=== PATIENT | female | born 1960 | race Caucasian/White ===

== ENCOUNTER 2017-10-21 10:11 | Inpatient (IN) | payer MEDICAID, SELFPAY ==
[2017-10-21] VITALS (8 sets, daily range): BP systolic 112–125; BP diastolic 44–85; PULSE 76–108; RESP 20–24; TEMP 36.9–38.8; O2SAT 91–97; BMI 36.2; BMI 33.7
--- NOTE | 2017-10-21 10:25 | XR_ITS ---
XR chest 2V HISTORY: ITS.REASON: dyspnea ORDERING PHYSICIAN: Gino Oates MD PATIENT AGE: 56 years COMPARISON: 09/03/2009 FINDINGS: The cardiomediastinal silhouette and pulmonary vascularity are within normal limits. There is coarsening of bronchovascular markings in the lower lobes which has developed since previous exam with increased density in the lower lobes and right middle lobe consistent with bronchopneumonia. Suggest follow until clear as pulmonary nodule could be obscured. IMPRESSION: Bronchopneumonia. Recommend follow until clear
[2017-10-21 11:39] LABS: Basophils % 0.3 % (0.1-2.0); Eosinophils % 0.1 % (0.1-12.0); Lymphocytes # 0.8 K/mm3 (0.7-4.5); Lymphocytes % 19.8 K/mm3 (10-50); Mean Corpuscular HGB Conc 33.4 g/dL (31.8-35.4); Mean Corpuscular Hemoglobin 29.1 pg (27.0-31.2); Mean Corpuscular Volume 87.4 fl (81-99); Mean Platelet Volume 7.9 fl (7.4-10.4); Monocytes # 0.3 K/mm3 (0.1-1.0); Monocytes % 5.8 % (1.7-9.3); Neutrophils # 3.1 K/mm3 (1.8-7.8); Neutrophils % 73.9 % (37.0-80.0); Platelet Count 203 K/mm3 (142-424); Red Cell Distribution Width 12.9 % (11.5-17.5); White Blood Count 4.2 K/mm3 (4.8-10.8)
[2017-10-21 11:43] LABS: Lipase 175 u/L (73-393)
[2017-10-21 11:48] LABS: Alanine Aminotransferase 69 U/L (12-78); Albumin Level 2.9 gm/dL (3.4-5.0); Albumin/Globulin Ratio 0.7 (1.1-1.8); Alkaline Phosphatase 112 U/L (46-116); Anion Gap 13.2 mEq/L (5-15); Aspartate Amino Transferase 117 U/L (15-37); Bilirubin,Total 0.4 mg/dL (0.2-1.0); Blood Urea Nitrogen 12 mg/dL (7-18); Calcium 8.1 mg/dL (8.5-10.1); Carbon Dioxide 27 mmol/L (21.0-32.0); Chloride 104 mmol/L (98-107); Creatinine Clearance Estimated 100 mL/min (0-300); Creatinine,Serum 0.89 mg/dL (0.55-1.02); Estimated Glomerular Filt Rate 66 ml/min (>60); GFR (African American) 79 ML/MIN (>60); Globulin 4.3 gm/dl (1.3-3.2); Glucose 128 mg/dL (74-106); Potassium 3.2 mmoL/L (3.5-5.1); Sodium 141 mmol/L (136-145); Total Protein,Serum 7.2 gm/dL (6.4-8.2)
[2017-10-21 11:50] LABS: Lactic Acid 0.9 mmol/L (0.4-2.0)
--- NOTE | 2017-10-21 12:44 | HMH.EDSOB ---
ED Disposition Clinical Impression: Hypoxia, Hypokalemia RLL pneumonia Qualifiers: Pneumonia type: due to unspecified organism Qualified Code(s): J18.1 - Lobar pneumonia, unspecified organism Disposition: Admitted As Inpatient Condition on Discharge: Fair Time of Disposition: 12:45 - Critical Care Critical Care Time: No Attestation: On 10/21/17, the high probability of a clinically significant, sudden or life threatening deterioration of the following system(s) required my full and direct attention, intervention and personal management. The time I documented below is in addition to time spent performing reported procedures but includes the following listed in this critical care notation. Medical Decision Making - Medical Records Medical records reviewed: Yes: I reviewed the patient's medical records. Vital Signs: 10/21/17 10:34 10/21/17 14:00 10/21/17 14:01 Temperature 99.3 F 99.1 F Temperature Source Oral Oral Pulse Rate 88 Pulse Rate [Right Radial] 108 H Respiratory Rate 22 20 Blood Pressure 125/85 Blood Pressure [Right Arm] 116/44 Blood Pressure Mean [Right Arm] 68 Blood Pressure Source Automatic Cuff Blood Pressure Source [Right Arm] Automatic Cuff Blood Pressure Position Supine Blood Pressure Position [Right Arm] Sitting 02 Sat by Pulse Oximetry 91 L Oxygen Delivery Method Room Air Nasal Cannula Room Air Oxygen Flow Rate (LPM) 2 - Lab Data Lab results reviewed: Yes: I reviewed the patient's lab results. Lab Results 10/21/17 11:25: WBC 4.2 L, RBC 4.80, Hgb 14.0, Hct 42.0, MCV 87.4, MCH 29.1, MCHC 33.4, RDW 12.9, Plt Count 203, MPV 7.9, Neut % (Auto) 73.9, Lymph % (Auto) 19.8, [place] % (Auto) 5.8, Eos % (Auto) 0.1, Baso % (Auto) 0.3, Neut # (Auto) 3.1, Lymph # (Auto) 0.8, [place] # (Auto) 0.3, Eos # (Auto) 0.0, Baso # (Auto) 0.0 10/21/17 11:25: Sodium 141, Potassium 3.2 L, Chloride 104, Carbon Dioxide 27, Anion Gap 13.2, BUN 12, Creatinine 0.89, Estimated Creat Clear 100, Estimated GFR 66, Est GFR ( Amer) 79, Glucose 128 H, Calcium 8.1 L, Total Bilirubin 0.4, AST 117 H, ALT 69, Alkaline Phosphatase 112, Total Protein 7.2, Albumin 2.9 L, Globulin 4.3 H, Albumin/Globulin Ratio 0.7 L 10/21/17 11:25: Lactic Acid 0.9 10/21/17 11:25: Total Creatine Kinase 576 H*, CK-MB (CK-2) 0.9, CK-MB (CK-2) Rel Index 0.2, Troponin I < 0.02, Amylase 33 10/21/17 11:25: Lipase 175 10/21/17 11:25: Influenza Type A Ag Negative, Influenza Type B Ag Negative Result diagrams: 10/21/17 11:25 10/21/17 11:25 Orders (Tests/Meds): ED MEDICATIONS Generic Name Dose Route Start Last Admin Trade Name Freq PRN Reason Stop Dose Admin Acetaminophen 650 mg 10/21/17 23:48 10/21/17 23:45 Acetaminophen 325mg Tab PO 11/20/17 23:47 650 mg Q6HP PRN Administration MILD PAIN OR FEVER Albuterol/Ipratropium 3 ml 10/21/17 18:00 10/22/17 11:10 Duoneb 3ml Neb IH 11/20/17 17:59 3 ml Q6RT DAVID Administration Sodium Chloride 1,000 mls @ 75 mls/hr 10/21/17 14:15 10/22/17 03:15 Sod Chloride 0.9% 1000ml Bag IV 11/20/17 12:59 75 mls/hr .[id number] DAVID Administration Levofloxacin/Dextrose 750 mg in 150 mls @ 100 mls/hr 10/22/17 13:00 Levofloxacin 750mg/150ml Premix IV 11/04/17 12:59 Q24H DAVID Protocol Sodium Chloride 10 ml 10/21/17 14:15 Saline Flush 10ml Syringe IV 11/20/17 12:45 NEEDED PRN Maintain IV Site Discontinued Medications Generic Name Dose Route Start Last Admin Trade Name Freq PRN Reason Stop Dose Admin Levofloxacin/Dextrose 750 mg in 150 mls @ 100 mls/hr 10/21/17 10:45 10/21/17 11:40 Levofloxacin 750mg/150ml Premix IV 11/04/17 10:44 100 mls/hr Q24H DAVID Administration Protocol Sodium Chloride 1,000 mls @ 75 mls/hr 10/21/17 13:00 10/21/17 14:28 Sod Chloride 0.9% 1000ml Bag IV 11/20/17 12:59 75 mls/hr .[id number] DAVID Administration Levofloxacin/Dextrose 750 mg in 150 mls @ 100 mls/hr 10/21/17 13:
[2017-10-21 13:20] LABS: Amylase 33 U/L (25-125); CKMB Relative Index 0.2 U/L (0-4.0); Creatine Kinase 576 U/L (26-192); Creatine Kinase MB 0.9 mg/ml (0.0-3.6); Troponin I < 0.02 ng/ml (0.00-0.06)
--- NOTE | 2017-10-21 14:10 | HMH.HP ---
*Admission Date: 10/21/17 *Chief complaint: shortness of breath, cough, weakness *History of present illness: 56 year old female presented to the ED with shortness of breath, cough and weakness that has worsened over the last few days. She was seen in PCP office on 10/17 and diagnosed with URI. Since then, she has developed shortness of breath and fever. In the ED, she was found to be mildly hypoxic at 90% on RA. CXR was + for RLL pneumonia. Patient admitted for IV antibiotics. [facility] History I have reviewed the patient's past medical history: Yes Medical History: Reports:: Depression, Hypertension - *Social History Alcohol Intake: never - Psychiatric History Expresses thoughts of harming self/others: None Suicide Plan Description: No Plan Review of Systems - Review of Systems Review of systems:: pertinent systems reviewed and negative unless documented below - Constitutional Reports fatigue, Reports fever(s), Reports weakness - *Respiratory Reports cough, Reports shortness of breath Meds Allergies Allergy/AdvReac Type Severity Reaction Status Date / Time Penicillins [PENICILLINS] Allergy Unknown I-HIVES Verified 10/21/17 11:37 Exam Vital signs and Labs for Last 24 Hours: Temp Pulse Resp BP Pulse Ox 99.1 F 88 20 125/85 91 L 10/21/17 14:01 10/21/17 14:01 10/21/17 14:01 10/21/17 14:01 10/21/17 10:34 Narrative: Alert and oriented x3. Rate and rhythm regular. Pulses 2+ bilaterally. No LE edema. Abdomen soft and nontender. Normactive Bowel sounds. No LAD. No JVD. Moist membranes, nose clear Assessment and Plan (1) Hypokalemia Current visit: Yes Status: Acute Category: Medical Code(s): E87.6 - Hypokalemia (2) RLL pneumonia Current visit: Yes Status: Acute Qualifiers: Pneumonia type: due to unspecified organism Qualified Code(s): J18.1 - Lobar pneumonia, unspecified organism Category: Medical Code(s): J18.1 - Lobar pneumonia, unspecified organism - Assessment and plan all Dx Assessment and Plan for all problems:: Continue IV antibiotics and duonebs. Obtain Resp PCR. Obtain sputum culture if able to produce.
[2017-10-21 14:37] LABS: Adenovirus,PCR Not Detected (NotDetected); Bordetella Pertussis Not Detected (NotDetected); Chlamydophila Pneumoniae, PCR Not Detected (NotDetected); Coronavirus 229E Not Detected (NotDetected); Coronavirus NL63 Not Detected (NotDetected); Coronavirus OC43 Not Detected (NotDetected); Coronovirus HKU1,PCR Not Detected (NotDetected); Human Metapneumovirus Not Detected (NotDetected); Influenza A, PCR Not Detected (NotDetected); Influenza AH1, 2009 Not Detected (NotDetected); Influenza AH1, PCR Not Detected (NotDetected); Influenza AH3,PCR Not Detected (NotDetected); Influenza B, PCR Not Detected (NotDetected); Mycoplasma Pneumoniae, PCR Not Detected (NotDected); Parainfluenza 1, PCR Not Detected (NotDetected); Parainfluenza 2, PCR Not Detected (NotDetected); Parainfluenza 3, PCR Not Detected (NotDetected); Parainfluenza 4, PCR Not Detected (NotDetected); Respiratory Syncytial Virus Not Detected (NotDetected); Rhinovirus/Enterovirus Not Detected (NotDetected)
[2017-10-22] VITALS (11 sets, daily range): BP systolic 115–139; BP diastolic 67–85; PULSE 68–113; RESP 20–24; TEMP 36.4–37.1; O2SAT 89–97
--- NOTE | 2017-10-22 05:24 | PC.NURSE ---
PT HAS C/O SOA AT TIMES THIS SHIFT. SHE REMAINS ON 2.5 L O2 NC. SHE WAS NOTED TO HAVE SCATTERED WHEEZING T/O LUNG GRUBER. PT C/O BEING COLD AND WAS SHIVERING. PT TEMP WAS CHECKED AND NOTED TO BE 101.8. SHE HAS ALSO BEEN NOTED TO BE DIAPHORETIC AT TIMES. TYLENOL WAS ADMINISTERED X1 AFTER ELEVATED TEMP WAS NOTED. ARRANGING [employer] DIRECTOR WAS PLACED ON O2 FOR PT WHILE AMBULATING TO BATHROOM TO HELP WITH SOA ON EXERTION. NO OTHER CONERNS AT THIS TIME. WILL CONTINUE TO MONITOR.
--- NOTE | 2017-10-22 07:34 | HMH.PHAVTE ---
[facility] Pharmacy VTE Monitoring - Patient Demographics Admission date: 10/21/17 Report Date: 10/22/17 Time: 07:34 Allergies/Adverse Reactions: Patient Allergies Penicillins [PENICILLINS] Allergy (Unknown, Verified 10/21/17 11:37) I-HIVES Height: 1.57 m Weight: 83.716 kg Patient Problems: Current Active Problems RLL pneumonia (Acute) Hypoxia (Acute) Hypokalemia (Acute) - VTE Risk Labs: VTE Related Lab Results Hgb 14.0 g/dL (12.2-16.2) 10/21/17 11:25 Hct 42.0 % (37.0-47.0) 10/21/17 11:25 Plt Count 203 K/mm3 (142-424) 10/21/17 11:25 BUN 12 mg/dL (7-18) 10/21/17 11:25 Creatinine 0.89 mg/dL (0.55-1.02) 10/21/17 11:25 Estimated Creat Clear 100 mL/min (0-300) 10/21/17 11:25 VTE Score: 1 VTE Risk Level: Very Low Risk Clinical Trial Participant: No - Prophylaxis VTE Prophylaxis Ordered?: Yes Types of VTE Prophylaxis: TEDS Knee High
--- NOTE | 2017-10-22 07:45 | P.PN_ITS ---
Internal Medicine - PN: Subj *Date: 10/22/17 *Time: 07:44 Interval history: Overall patient feels somewhat better than yesterday, continues to be short of air but this has improved, and she continues to cough with green sputum. Exam Vital signs and Labs for Last 24 Hours: Temp Pulse Resp BP Pulse Ox 97.5 F L 90 22 115/85 97 10/22/17 04:00 10/22/17 06:05 10/22/17 04:00 10/22/17 04:00 10/22/17 06:05 Laboratory Results - last 24 hr 10/21/17 14:15: Chlamy pneumoniae PCR Not detected, Adenovirus (PCR) Not detected, B.parapertussis DNA PCR Not detected, Coronavirus OC43 (PCR) Not detected, Coronavirus HKU1 (PCR) Not detected, Coronavirus 229E (PCR) Not detected, Coronavirus NL63 (PCR) Not detected, Human Metapneumovir PCR Not detected, Influenza A (H1) PCR Not detected, Influ A (H1N1/09) PCR Not detected , Influenza A (H3) PCR Not detected, Influenza Type A (PCR) Not detected, Influenza Type B (PCR) Not detected, M. pneumoniae (PCR) Not detected, Parainfluenza 1 (PCR) Not detected, Parainfluenza 2 (PCR) Not detected, Parainfluenza 3 (PCR) Not detected, Parainfluenza 4 (PCR) Not detected, RSV (PCR ) Not detected, Entero/Rhino (PCR) Not detected I & O for Last 24 hours: Intake & Output 10/19/17 10/20/17 10/21/17 10/22/17 11:59 11:59 11:59 11:59 Intake Total 1386 / 1386 Output Total Balance 1385 / 1385 Weight 184 lb 9 oz Narrative: Patient is pleasant and talkative, no dyspnea at rest, some dyspnea when she talks. Anterior lung lewis have rhonchi, minimal crackles. Heart rate regular. Abdomen soft and nontender. Assessment and Plan (1) Hypokalemia Current visit: Yes Status: Acute Category: Medical Code(s): E87.6 - Hypokalemia (2) RLL pneumonia Current visit: Yes Status: Acute Qualifiers: Pneumonia type: due to unspecified organism Qualified Code(s): J18.1 - Lobar pneumonia, unspecified organism Category: Medical Code(s): J18.1 - Lobar pneumonia, unspecified organism - Assessment and plan all Dx Assessment and Plan for all problems:: Overall improving with enhanced pulmonary toilet and oxygen support. Await culture results.
--- NOTE | 2017-10-22 07:46 | PC.NURSE ---
PER DR. JENNY LINDSEYG
[2017-10-23] VITALS (11 sets, daily range): BP systolic 127–143; BP diastolic 58–96; PULSE 78–99; RESP 18–20; TEMP 36.4–37.4; O2SAT 94–97
--- NOTE | 2017-10-23 04:15 | PC.NURSE ---
PT HAS WELL THIS SHIFT. DENIES PAIN OR DISCOMFORT. PT LUNG SOUNDS DIMINISHED WITH FAINT WHEEZES. BS ACTIVE IN ALL 4 QUADS, LAST BM 10/22/17. PT HAS REMAINED AFEBRILE THIS SHIFT. TOLERATING 2-2.5L NC. VSS. A&OX3. NO ACUTE DISTRESS NOTED WILL CONT. TO MONITOR.
[2017-10-23 06:23] LABS: Microscopic, Urine URINE MICROSCOPIC (MICROSCOPIC)
[2017-10-23 06:26] LABS: Appearance,Urine CLEAR (Clear); Bilirubin,Urine Negative (Negative); Blood, Urine 2+ (Negative); Color,Urine YELLOW (Yellow); Glucose,Urine (UA) Negative (Negative); Ketones,Urine Negative (Negative); Leukocyte Esterase,Urine Negative (Negative); Nitrate,Urine Negative (Negative); Protein,Urine TRACE (Negative)
[2017-10-23 06:51] LABS: Bacteria,Urine 2+ /lpf; Mucus,Urine Trace /lpf
[2017-10-23 07:10] LABS: Anion Gap 11.9 mEq/L (5-15); Blood Urea Nitrogen 9 mg/dL (7-18); Carbon Dioxide 27 mmol/L (21.0-32.0); Chloride 110 mmol/L (98-107); Creatinine Clearance Estimated 119 mL/min (0-300); Estimated Glomerular Filt Rate 87 ml/min (>60); GFR (African American) 105 ML/MIN (>60); Glucose 96 mg/dL (74-106); Sodium 146 mmol/L (136-145)
[2017-10-23 07:15] LABS: Potassium 2.9 mmoL/L (3.5-5.1)
--- NOTE | 2017-10-23 07:33 | PC.NURSE ---
report given to waldemar senior rn
--- NOTE | 2017-10-23 07:34 | PC.NURSE ---
Critical k+ of 2.9 notification to Kenisha Mejia @ [id number]
--- NOTE | 2017-10-23 12:16 | XR_ITS ---
XR chest 2V HISTORY: ITS.REASON: pneumonia ORDERING PHYSICIAN: Davis Dhillon MD PATIENT AGE: 56 years COMPARISON: 10 21 18 FINDINGS: Increasing consolidation is present in both lower lobes consistent with worsening bilateral lower lobe pneumonia. Normal heart size. No obvious effusion. Pneumonia is also present in the right middle lobe and lingula. IMPRESSION: Worsening bilateral pneumonia
--- NOTE | 2017-10-23 13:19 | P.PN_ITS ---
Internal Medicine - PN: Subj *Date: 10/23/17 *Time: 07:15 Interval history: Patient continues to have shortness of breath, especially with ambulation. She is producing green sputum, culture is pending. Reports multiple liquid stools, no blood or mucous. ALert and oriented x3. Rate and rhythm regular. No LE edema. Lung sounds with scattered rhonchi, crackles RLL. Abdomen soft and nontender Exam Vital signs and Labs for Last 24 Hours: Temp Pulse Resp BP Pulse Ox 99.4 F 99 H 18 127/72 95 10/23/17 11:18 10/23/17 11:18 10/23/17 11:18 10/23/17 11:18 10/23/17 11:18 Laboratory Results - last 24 hr 10/23/17 06:00: Sodium 146 H, Potassium 2.9 L*, Chloride 110 H, Carbon Dioxide 27, Anion Gap 11.9, BUN 9, Creatinine 0.70 D, Estimated Creat Clear 119, Estimated GFR 87, Est GFR ( Amer) 105 D, Glucose 96 10/23/17 06:08: Urine Color Yellow, Urine Appearance Clear, Urine pH 7.0, Ur Specific [place] 1.010, Urine Protein Trace, Urine Glucose (UA) Negative, Urine Ketones Negative, Urine Blood 2+, Urine Nitrate Negative, Urine Bilirubin Negative, Urine Urobilinogen 1.0, Ur Leukocyte Esterase Negative, Urine RBC 5-10 , Urine WBC 3-5, Ur Squamous Epith Cells 3-5, Urine Bacteria 2+, Urine Mucus Trace I & O for Last 24 hours: Intake & Output 10/21/17 10/22/17 10/23/17 10/24/17 11:59 11:59 11:59 11:59 Intake Total 1386 / 1386 2870 / 2870 Output Total 0 / 0 Balance 1385 / 1385 2870 / 2870 Weight 184 lb 9 oz Assessment and Plan (1) Hypokalemia Current visit: Yes Status: Acute Category: Medical Code(s): E87.6 - Hypokalemia (2) RLL pneumonia Current visit: Yes Status: Acute Qualifiers: Pneumonia type: due to unspecified organism Qualified Code(s): J18.1 - Lobar pneumonia, unspecified organism Category: Medical Code(s): J18.1 - Lobar pneumonia, unspecified organism - Assessment and plan all Dx Assessment and Plan for all problems:: Continue IV Levaquin. Repeat CXR today. Start probiotics for loose stool, likely related to Levaquin. Will obtain diarrhea PCR if symptoms persist. Oral potassium replacement today. Will recheck BMP in the am.
--- NOTE | 2017-10-23 14:12 | PC.NURSE ---
PATIENT NOW OFF THE UNIT FOR HER CHEST XRAY.
--- NOTE | 2017-10-23 14:29 | PC.NURSE ---
PATIENT NOW BACK FROM HER CHEST XRAY.
--- NOTE | 2017-10-23 18:59 | PC.NURSE ---
PATIENT RESTING IN BED, HAD A REPEAT CHEST XRAY TODAY SHOWING INCREASED CONSOLIDATION PRESENT IN BOTH HER LOWER LUNGS, WORSENING BL PNEUMONIA. SHE WILL HAVE LABS DRAWN (CBC) IN THE AM AND WAS STARTED THIS PM ON CLINDAMYCIN 900MG IVP WELL SOME PROBIOTICS. PATIENT HAD REPORTED HAVING SOME LOOSE STOOLS TODAY, COULD BE RELATED TO HER LEVAQUIN ANTBX. BUT SINCE WE STARTED THE PROBIOTCS SHE SAID SHE HAS HAD NO MORE DIARRHEA. LUNGS STILL SOUND JUNKY SCATTERED RHONCHI AND DECREASED BREATH SOUNDS IN HER BL BASES.
--- NOTE | 2017-10-23 19:25 | PC.NURSE ---
REPORT GIVEN TO MASOUD BORRERO AT THIS TIME.
[2017-10-24] VITALS (9 sets, daily range): BP systolic 120–148; BP diastolic 64–88; PULSE 80–105; RESP 16–22; TEMP 36.4–37.2; O2SAT 89–100
--- NOTE | 2017-10-24 04:50 | PC.NURSE ---
no changes noted from previous assessment, pt has slept well this shift, pt has tolerated 2 L NC well, O2 sats have remained at or above 90, vss, breath sounds are diminished in the bases and scattered rhonchi is noted, pt continues to have non productive cough, bowel sounds are active x4 quads, pt denies any pain, no acute distress noted at this time, call light in reach, will continue to monitor.
[2017-10-24 06:32] LABS: Basophils % 0.3 % (0.1-2.0); Eosinophils % 0.6 % (0.1-12.0); Hematocrit 35.3 % (37.0-47.0); Hemoglobin 11.5 g/dL (12.2-16.2); Lymphocytes # 1.5 K/mm3 (0.7-4.5); Lymphocytes % 25.2 K/mm3 (10-50); Mean Corpuscular HGB Conc 32.7 g/dL (31.8-35.4); Mean Corpuscular Hemoglobin 28.8 pg (27.0-31.2); Mean Corpuscular Volume 87.9 fl (81-99); Mean Platelet Volume 7.9 fl (7.4-10.4); Monocytes # 0.5 K/mm3 (0.1-1.0); Monocytes % 8.5 % (1.7-9.3); Neutrophils # 3.8 K/mm3 (1.8-7.8); Neutrophils % 65.3 % (37.0-80.0); Platelet Count 234 K/mm3 (142-424); Red Blood Count 4.02 M/mm3 (4.20-5.40); White Blood Count 5.8 K/mm3 (4.8-10.8)
[2017-10-24 06:36] LABS: Anion Gap 12.2 mEq/L (5-15); Blood Urea Nitrogen 9 mg/dL (7-18); Carbon Dioxide 27 mmol/L (21.0-32.0); Chloride 109 mmol/L (98-107); Creatinine Clearance Estimated 122 mL/min (0-300); Creatinine,Serum 0.68 mg/dL (0.55-1.02); Estimated Glomerular Filt Rate 90 ml/min (>60); GFR (African American) 108 ML/MIN (>60); Glucose 93 mg/dL (74-106); Potassium 3.2 mmoL/L (3.5-5.1); Sodium 145 mmol/L (136-145)
--- NOTE | 2017-10-24 07:17 | PC.NURSE ---
Report given to Matias MEREDITH
--- NOTE | 2017-10-24 08:35 | HMH.ACPN ---
Internal Medicine - PN: Subj *Date: 10/24/17 *Time: 08:35 Interval history: Reports that she feels some better this morning. Continues to cough and is short of breath with activity but her room-air saturations have been above 90%. Bowels and bladder working well, denies pain. Exam Vital signs and Labs for Last 24 Hours: Temp Pulse Resp BP Pulse Ox 98.5 F 95 H 22 138/85 96 10/24/17 08:00 10/24/17 08:00 10/24/17 08:00 10/24/17 08:00 10/24/17 08:00 Laboratory Results - last 24 hr 10/24/17 06:15: Sodium 145, Potassium 3.2 L, Chloride 109 H, Carbon Dioxide 27, Anion Gap 12.2, BUN 9, Creatinine 0.68, Estimated Creat Clear 122, Estimated GFR 90, Est GFR ( Amer) 108, Glucose 93 10/24/17 06:15: WBC 5.8 D, RBC 4.02 L, Hgb 11.5 L, Hct 35.3 L, MCV 87.9, MCH 28.8, MCHC 32.7, RDW 13.0, Plt Count 234, MPV 7.9, Neut % (Auto) 65.3, Lymph % (Auto) 25.2, [place] % (Auto) 8.5, Eos % (Auto) 0.6, Baso % (Auto) 0.3, Neut # (Auto) 3.8, Lymph # (Auto) 1.5, [place] # (Auto) 0.5, Eos # (Auto) 0.0, Baso # (Auto) 0.0 I & O for Last 24 hours: Intake & Output 10/21/17 10/22/17 10/23/17 10/24/17 11:59 11:59 11:59 11:59 Intake Total 1386 / 1386 2870 / 2870 1730 / 1730 Output Total 0 / 0 450 / 450 Balance 1385 / 1385 2870 / 2870 1280 / 1280 Weight 184 lb 9 oz Microbiology Reports for the Last 24 Hours: Microbiology 10/23/17 06:08 Urine,Clean Catch Urine Culture - Preliminary NO GROWTH AFTER 24 HOURS Narrative: Awake, oriented x 3. Heart with RRR, systolic murmur. Diffuse rhonchi bilat, worse on the left. Abdomen obese, soft, NT/ND, BS normal. No edema, 2+ pedal pulses Assessment and Plan (1) Staphylococcus aureus pneumonia Current visit: Yes Status: Acute Category: Medical Code(s): J15.211 - Pneumonia due to Methicillin susceptible Staphylococcus aureus (2) Hypokalemia Current visit: Yes Status: Acute Category: Medical Code(s): E87.6 - Hypokalemia (3) RLL pneumonia Current visit: Yes Status: Acute Qualifiers: Pneumonia type: due to unspecified organism Qualified Code(s): J18.1 - Lobar pneumonia, unspecified organism Category: Medical Code(s): J18.1 - Lobar pneumonia, unspecified organism - Assessment and plan all Dx Assessment and Plan for all problems:: Clindamycin IV was added yesterday due to worsening pneumonia on xray and gram-positive cocci in sputum. ID today with staph aureus, sensitive to clindamycin. DC IV levaquin today, continue clindamycin. Encouraged pulmonary toilet today and hopefully DC home tomorrow on PO clindamycin.
--- NOTE | 2017-10-24 08:39 | P.PN_ITS ---
Internal Medicine - PN: Subj *Date: 10/24/17 *Time: 08:35 Interval history: Reports that she feels some better this morning. Continues to cough and is short of breath with activity but her room-air saturations have been above 90%. Bowels and bladder working well, denies pain. Exam Vital signs and Labs for Last 24 Hours: Temp Pulse Resp BP Pulse Ox 98.5 F 95 H 22 138/85 96 10/24/17 08:00 10/24/17 08:00 10/24/17 08:00 10/24/17 08:00 10/24/17 08:00 Laboratory Results - last 24 hr 10/24/17 06:15: Sodium 145, Potassium 3.2 L, Chloride 109 H, Carbon Dioxide 27, Anion Gap 12.2, BUN 9, Creatinine 0.68, Estimated Creat Clear 122, Estimated GFR 90, Est GFR ( Amer) 108, Glucose 93 10/24/17 06:15: WBC 5.8 D, RBC 4.02 L, Hgb 11.5 L, Hct 35.3 L, MCV 87.9, MCH 28.8, MCHC 32.7, RDW 13.0, Plt Count 234, MPV 7.9, Neut % (Auto) 65.3, Lymph % ( Auto) 25.2, [place] % (Auto) 8.5, Eos % (Auto) 0.6, Baso % (Auto) 0.3, Neut # (Auto ) 3.8, Lymph # (Auto) 1.5, [place] # (Auto) 0.5, Eos # (Auto) 0.0, Baso # (Auto) 0.0 I & O for Last 24 hours: Intake & Output 10/21/17 10/22/17 10/23/17 10/24/17 11:59 11:59 11:59 11:59 Intake Total 1386 / 1386 2870 / 2870 1730 / 1730 Output Total 0 / 0 450 / 450 Balance 1385 / 1385 2870 / 2870 1280 / 1280 Weight 184 lb 9 oz Microbiology Reports for the Last 24 Hours: Microbiology 10/23/17 06:08 Urine,Clean Catch Urine Culture - Preliminary NO GROWTH AFTER 24 HOURS Narrative: Awake, oriented x 3. Heart with RRR, systolic murmur. Diffuse rhonchi bilat, worse on the left. Abdomen obese, soft, NT/ND, BS normal. No edema, 2+ pedal pulses Assessment and Plan (1) Staphylococcus aureus pneumonia Current visit: Yes Status: Acute Category: Medical Code(s): J15.211 - Pneumonia due to Methicillin susceptible Staphylococcus aureus (2) Hypokalemia Current visit: Yes Status: Acute Category: Medical Code(s): E87.6 - Hypokalemia (3) RLL pneumonia Current visit: Yes Status: Acute Qualifiers: Pneumonia type: due to unspecified organism Qualified Code(s): J18.1 - Lobar pneumonia, unspecified organism Category: Medical Code(s): J18.1 - Lobar pneumonia, unspecified organism - Assessment and plan all Dx Assessment and Plan for all problems:: Clindamycin IV was added yesterday due to worsening pneumonia on xray and gram- positive cocci in sputum. ID today with staph aureus, sensitive to clindamycin. DC IV levaquin today, continue clindamycin. Encouraged pulmonary toilet today and hopefully DC home tomorrow on PO clindamycin.
[2017-10-25] VITALS: BP 122/70; PULSE 86; PULSE 90; PULSE 94; RESP 18; TEMP 36.9; O2SAT 93
[2017-10-25 04:00] VITALS: BP 131/78; PULSE 95; RESP 20; TEMP 36.8; O2SAT 95
--- NOTE | 2017-10-25 05:55 | PC.NURSE ---
no changes noted since previous assessment, pt denies pain and SOA, however RN noted SOA with activity in room, breath sounds are diminished in the bases and expiratory wheezing noted, occasional coughing producing thick white sputum, pt has maintained O2 sats at or above 90 on 2L NC, no acute distress noted a this time, call light in reach, will continue to monitor.
[2017-10-25 06:28] LABS: Basophils % 0.3 % (0.1-2.0); Eosinophils # 0.1 K/mm3 (0.0-0.4); Eosinophils % 0.9 % (0.1-12.0); Hemoglobin 11.1 g/dL (12.2-16.2); Lymphocytes % 15.4 K/mm3 (10-50); Mean Corpuscular HGB Conc 32.6 g/dL (31.8-35.4); Mean Corpuscular Hemoglobin 28.8 pg (27.0-31.2); Mean Corpuscular Volume 88.4 fl (81-99); Mean Platelet Volume 8.1 fl (7.4-10.4); Monocytes # 0.8 K/mm3 (0.1-1.0); Monocytes % 11.9 % (1.7-9.3); Neutrophils # 4.6 K/mm3 (1.8-7.8); Neutrophils % 71.5 % (37.0-80.0); Platelet Count 303 K/mm3 (142-424); Red Blood Count 3.84 M/mm3 (4.20-5.40); Red Cell Distribution Width 12.9 % (11.5-17.5); White Blood Count 6.5 K/mm3 (4.8-10.8)
[2017-10-25 06:29] LABS: Anion Gap 13.4 mEq/L (5-15); Blood Urea Nitrogen 8 mg/dL (7-18); Carbon Dioxide 27 mmol/L (21.0-32.0); Chloride 108 mmol/L (98-107); Creatinine Clearance Estimated 115 mL/min (0-300); Creatinine,Serum 0.72 mg/dL (0.55-1.02); Estimated Glomerular Filt Rate 84 ml/min (>60); GFR (African American) 101 ML/MIN (>60); Glucose 96 mg/dL (74-106); Potassium 3.4 mmoL/L (3.5-5.1); Sodium 145 mmol/L (136-145)
[2017-10-25 06:45] VITALS: PULSE 95; PULSE 96; O2SAT 96
[2017-10-25 07:34] VITALS: BP 122/72; PULSE 100; RESP 22; TEMP 37.2; O2SAT 95
--- NOTE | 2017-10-25 08:49 | HMH.DCSUM ---
General - General Admission date: 10/21/17 Discharge date: 10/25/17 HPI HPI: 56 year old female presented to the ED with shortness of breath, cough and weakness that has worsened over the last few days. She was seen in PCP office on 10/17 and diagnosed with URI. Since then, she has developed shortness of breath and fever. In the ED, she was found to be mildly hypoxic at 90% on RA. CXR was + for RLL pneumonia. Patient admitted for IV antibiotics. Objective Vital signs: Temp Pulse Resp BP Pulse Ox 98.9 F 100 H 22 122/72 95 10/25/17 07:34 10/25/17 07:34 10/25/17 07:34 10/25/17 07:34 10/25/17 07:34 Narrative: Pleasant female, alert and oriented x 3. Heart with RRR, systolic murmur. Lungs with faint rhonchi, diminished breath sounds but equal and no increased work of breathing at rest. ENT exam unremarkable, membranes are moist. Abdomen soft, NT/ND, BS present. No edema. Hospital Course Hospital Course: Ms. Orourke was placed on CAP protocol but over the first 48 hours failed to improve clinically. Followup CXR showed worsening pneumonia and gram stain showed gram positive cocci so Clindamycin IV was added. She started to improve symptomatically after addition of clindamycin and sputum grew staph aureus that is sensitive to clindamycin. This morning her exam is improved and labs are stable. She reports feeling much better and is anxious to go home. She will be discharged on PO clindamycin and albuterol by inhaler with FU in our office on 2017. Results Labs on day of discharge: Labs from last 24 hours 10/25/17 10/25/17 05:30 05:30 WBC 6.5 RBC 3.84 L Hgb 11.1 L Hct 34.0 L MCV 88.4 MCH 28.8 MCHC 32.6 RDW 12.9 Plt Count 303 D MPV 8.1 Neut % (Auto) 71.5 Lymph % (Auto) 15.4 [place] % (Auto) 11.9 H Eos % (Auto) 0.9 Baso % (Auto) 0.3 Neut # (Auto) 4.6 Lymph # (Auto) 1.0 [place] # (Auto) 0.8 Eos # (Auto) 0.1 Baso # (Auto) 0.0 Sodium 145 Potassium 3.4 L Chloride 108 H Carbon Dioxide 27 Anion Gap 13.4 BUN 8 Creatinine 0.72 Estimated Creat Clear 115 Estimated GFR 84 Est GFR ( Amer) 101 Glucose 96 DS: Diagnosis - Discharge Diagnosis (1) Staphylococcus aureus pneumonia Status: Acute (2) Hypokalemia Status: Resolved (3) RLL pneumonia Status: Acute Meds Home Medications Medication Instructions Recorded Confirmed Type Duloxetine HCl 60 mg PO DAILY 10/21/17 10/21/17 History Omeprazole [Omeprazole 40mg 40 mg PO DAILY 10/21/17 10/21/17 History Capsule] Bisoprol/Hydrochlorothiazide 1 each PO DAILY 10/22/17 10/22/17 History [Bisoprolol-Hctz 5-6.25 mg Tab] hydrOXYzine HCl [Hydroxyzine HCl] 25 mg PO TID 10/22/17 10/22/17 History Allergies Allergy/AdvReac Type Severity Reaction Status Date / Time Penicillins [PENICILLINS] Allergy Unknown I-HIVES Verified 10/21/17 11:37 Discharge Plan - Patient Discharge Instructions ACTIVITY: Continue current activity DIET: continue same diet Patient Instructions: DI for Pneumonia -- Adult - Follow up Plan Follow up with: Edilma Abdullahi APRN [Nurse Practitioner] - (Oct 30) Disposition: Home, Self-Assisted Medications: Home Medications Medication Instructions Recorded Confirmed Type Duloxetine HCl 60 mg PO DAILY 10/21/17 10/21/17 History Omeprazole [Omeprazole 40mg 40 mg PO DAILY 10/21/17 10/21/17 History Capsule] Bisoprol/Hydrochlorothiazide 1 each PO DAILY 10/22/17 10/22/17 History [Bisoprolol-Hctz 5-6.25 mg Tab] hydrOXYzine HCl [Hydroxyzine HCl] 25 mg PO TID 10/22/17 10/22/17 History Prescriptions/Medication Reconciliation: New Albuterol Sulfate [Albuterol HFA Inhaler] 2 puffs IH Q6HP PRN #1 inh PRN Reason: Shortness Of Breath Or Wheezing Clindamycin HCl [Clindamycin 300mg Cap] 300 mg PO QID 7 Days cap Continue Duloxetine HCl 60 mg PO DAILY Bisop
--- NOTE | 2017-10-25 08:54 | P.DS_ITS ---
General - General Admission date: 10/21/17 Discharge date: 10/25/17 HPI HPI: 56 year old female presented to the ED with shortness of breath, cough and weakness that has worsened over the last few days. She was seen in PCP office on 10/17 and diagnosed with URI. Since then, she has developed shortness of breath and fever. In the ED, she was found to be mildly hypoxic at 90% on RA. CXR was + for RLL pneumonia. Patient admitted for IV antibiotics. Objective Vital signs: Temp Pulse Resp BP Pulse Ox 98.9 F 100 H 22 122/72 95 10/25/17 07:34 10/25/17 07:34 10/25/17 07:34 10/25/17 07:34 10/25/17 07:34 Narrative: Pleasant female, alert and oriented x 3. Heart with RRR, systolic murmur. Lungs with faint rhonchi, diminished breath sounds but equal and no increased work of breathing at rest. ENT exam unremarkable, membranes are moist. Abdomen soft, NT/ ND, BS present. No edema. Hospital Course Hospital Course: Ms. Orourke was placed on CAP protocol but over the first 48 hours failed to improve clinically. Followup CXR showed worsening pneumonia and gram stain showed gram positive cocci so Clindamycin IV was added. She started to improve symptomatically after addition of clindamycin and sputum grew staph aureus that is sensitive to clindamycin. This morning her exam is improved and labs are stable. She reports feeling much better and is anxious to go home. She will be discharged on PO clindamycin and albuterol by inhaler with FU in our office on 2017. Results Labs on day of discharge: Labs from last 24 hours 10/25/17 10/25/17 05:30 05:30 WBC 6.5 RBC 3.84 L Hgb 11.1 L Hct 34.0 L MCV 88.4 MCH 28.8 MCHC 32.6 RDW 12.9 Plt Count 303 D MPV 8.1 Neut % (Auto) 71.5 Lymph % (Auto) 15.4 [place] % (Auto) 11.9 H Eos % (Auto) 0.9 Baso % (Auto) 0.3 Neut # (Auto) 4.6 Lymph # (Auto) 1.0 [place] # (Auto) 0.8 Eos # (Auto) 0.1 Baso # (Auto) 0.0 Sodium 145 Potassium 3.4 L Chloride 108 H Carbon Dioxide 27 Anion Gap 13.4 BUN 8 Creatinine 0.72 Estimated Creat Clear 115 Estimated GFR 84 Est GFR ( Amer) 101 Glucose 96 DS: Diagnosis - Discharge Diagnosis (1) Staphylococcus aureus pneumonia Status: Acute (2) Hypokalemia Status: Resolved (3) RLL pneumonia Status: Acute Meds Home Medications Medication Instructions Recorded Confirmed Type Duloxetine HCl 60 mg PO DAILY 10/21/17 10/21/17 History Omeprazole [Omeprazole 40mg 40 mg PO DAILY 10/21/17 10/21/17 History Capsule] Bisoprol/Hydrochlorothiazide 1 each PO DAILY 10/22/17 10/22/17 History [Bisoprolol-Hctz 5-6.25 mg Tab] hydrOXYzine HCl [Hydroxyzine HCl] 25 mg PO TID 10/22/17 10/22/17 History Allergies Allergy/AdvReac Type Severity Reaction Status Date / Time Penicillins [PENICILLINS] Allergy Unknown I-HIVES Verified 10/21/17 11:37 Discharge Plan - Patient Discharge Instructions ACTIVITY: Continue current activity DIET: continue same diet Patient Instructions: DI for Pneumonia -- Adult
== END 2017-10-25 09:57 | disposition home or self-care (01) | DRG 179 ==
LOC: ER 10:43 → 2ND 12:30
PROVIDERS: Nurse Practitioner Family; Admitting Provider Internal Medicine Adolescent Medicine; Emergency Provider Emergency Medicine; Family Provider Internal Medicine Adolescent Medicine; PCP Internal Medicine Adolescent Medicine; Visit Provider Internal Medicine Adolescent Medicine
DX: J15.211 Pneumonia due to Methicillin susceptible Staphylococcus aureus (principal); E87.6 Hypokalemia; I10 Essential (primary) hypertension; R09.02 Hypoxemia; Z79.899 Other long term (current) drug therapy; Z88.0 Allergy status to penicillin
CPT/HCPCS: 36415; 71046; 80048; 80053; 81001; 82150; 82550; 82553; 83605; 83690; 84484; 85025; 87040; 87070; 87077; 87086; 87186; 87205; 87275; 87276; 87486; 87581; 87633; 87798; 93005; 93041; 94640; 94761; 96365; 99284; J1956

== ENCOUNTER → 2018-04-13 13:12 | Outpatient (CLI) | payer MEDICAID, SELFPAY ==
--- NOTE | 2018-04-13 13:23 | XR_ITS ---
XR chest 2V HISTORY: ITS.REASON: DYSPNEA ON EXERTION ORDERING PHYSICIAN: Davis Dhillon MD PATIENT AGE: 57 years COMPARISON: 10/23/2017 FINDINGS: The cardiomediastinal silhouette and pulmonary vascularity are within normal limits. The lungs are clear without infiltrates, suspicious nodules, or pleural effusions. Calcified granuloma is present in the right upper lobe and right midlung No acute bony abnormalities. IMPRESSION: Negative chest, no acute finding
[2018-04-13 13:48] LABS: Strep Scrn Group A (Rapid) Positive (Negative)
[2018-04-13 14:00] LABS: Basophils % 0.2 % (0.1-2.0); Eosinophils # 0.3 K/mm3 (0.0-0.4); Eosinophils % 2.4 % (0.1-12.0); Hematocrit 40.1 % (37.0-47.0); Hemoglobin 13.2 g/dL (12.2-16.2); Lymphocytes # 1.9 K/mm3 (0.7-4.5); Mean Corpuscular HGB Conc 32.9 g/dL (31.8-35.4); Mean Corpuscular Hemoglobin 28.9 pg (27.0-31.2); Mean Corpuscular Volume 87.8 fl (81-99); Mean Platelet Volume 7.4 fl (7.4-10.4); Monocytes # 0.8 K/mm3 (0.1-1.0); Monocytes % 7.6 % (1.7-9.3); Neutrophils # 7.7 K/mm3 (1.8-7.8); Neutrophils % 71.7 % (37.0-80.0); Platelet Count 296 K/mm3 (142-424); Red Blood Count 4.57 M/mm3 (4.20-5.40); Red Cell Distribution Width 13.2 % (11.5-17.5); White Blood Count 10.7 K/mm3 (4.8-10.8)
[2018-04-13 15:10] LABS: Alanine Aminotransferase 26 U/L (12-78); Albumin Level 3.4 gm/dL (3.4-5.0); Albumin/Globulin Ratio 0.9 (1.1-1.8); Alkaline Phosphatase 104 U/L (46-116); Aspartate Amino Transferase 18 U/L (15-37); Bilirubin,Total 0.6 mg/dL (0.2-1.0); Blood Urea Nitrogen 10 mg/dL (7-18); Calcium 8.5 mg/dL (8.5-10.1); Carbon Dioxide 26 mmol/L (21.0-32.0); Chloride 106 mmol/L (98-107); Creatinine,Serum 0.83 mg/dL (0.55-1.02); Estimated Glomerular Filt Rate 71 ml/min (>60); GFR (African American) 86 ML/MIN (>60); Globulin 3.6 gm/dl (1.3-3.2); Glucose 79 mg/dL (74-106); Sodium 141 mmol/L (136-145); Thyroid Stimulating Hormone 2.75 uIU/ml (0.358-3.740)
== END ==
PROVIDERS: Visit Provider Internal Medicine Adolescent Medicine
DX: R06.09 Other forms of dyspnea (principal); J03.90 Acute tonsillitis, unspecified
CPT/HCPCS: 36415; 71046; 80053; 84443; 85025; 87430

== ENCOUNTER → 2019-10-05 15:35 | Outpatient (CLI) | payer OTHER, SELFPAY ==
--- NOTE | 2019-10-05 15:41 | US_ITS ---
APPROVED REPORT Exam Type: Ankle to Brachial Index Diathermy Equipment Repairer: Christelle Pineda RT(R) Indications Claudication: Bilaterally Rest Pain: Bilaterally Risk Factors Hypertension History of Smoking Pressures/Indices Right Indices Left Indices Brachial 157.00 mmHg Brachial 156.00 mmHg Low Thigh 140.00 mmHg 0.89 Low Thigh 173.00 mmHg 1.10 Calf 180.00 mmHg 1.15 Calf 188.00 mmHg 1.20 Ankle(PT) 196.00 mmHg 1.25 Ankle(PT) 186.00 mmHg 1.18 Ankle(DP) 150.00 mmHg 0.96 Ankle(DP) 194.00 mmHg 1.24 Digit 161.00 mmHg 1.03 Digit 163.00 mmHg 1.04 Findings RT TIM=1.3 LT TIM=1.2 RT TBI=1.0 LT TBI=1.0 Restrictive waveforms and TIM ratios consistent with atherosclerosis. Conclusion RT TIM=1.3 LT TIM=1.2 RT TBI=1.0 LT TBI=1.0 Restrictive waveforms and TIM ratios consistent with atherosclerosis. Electronically signed by : Rosendo Herbert, 10/05/2019 17:15:44
== END ==
PROVIDERS: PCP Internal Medicine Adolescent Medicine; Visit Provider Nurse Practitioner Family
DX: R09.89 Other specified symptoms and signs involving the circulatory and respiratory systems (principal)
CPT/HCPCS: 93923

== ENCOUNTER → 2019-10-12 08:35 | Outpatient (CLI) | payer OTHER, SELFPAY ==
--- NOTE | 2019-10-12 08:42 | XR_ITS ---
PROCEDURE: XR LUMBAR SPINE MIN 4V CLINICAL INDICATION: LOW BACK PAIN COMPARISON: No exams were available for comparison FINDINGS: Normal alignment. No acute fracture or dislocation. There is degenerative disc disease at L5-S1 and to lesser degree at L1-L2 and L2-L3. No lytic or blastic change. The SI joints have an unremarkable appearance. IMPRESSION: Degenerative changes of the lumbar spine as described above Dictated by: Anupam Rose MD 10/12/2019 15:10 Electronically signed by Anupam Rose MD in [place] 10/12/2019 15:10
== END ==
PROVIDERS: PCP Internal Medicine Adolescent Medicine; Visit Provider Nurse Practitioner Family
DX: M54.5 Low back pain (principal)
CPT/HCPCS: 72110

== ENCOUNTER → 2019-10-18 09:08 | Outpatient (POV) | payer OTHER, SELFPAY ==
[2019-10-18 09:36] VITALS: BP 124/82; PULSE 98; RESP 18; O2SAT 99; BMI 33.8
--- NOTE | 2019-10-19 08:55 | HMH.PMCON ---
Assessment and Plan (1) Back pain Current visit: Yes Status: Chronic Category: Medical Code(s): M54.9 - Dorsalgia, unspecified (2) Leg pain Current visit: Yes Status: Chronic Category: Medical Code(s): M79.606 - Pain in leg, unspecified - Assessment and plan all Dx Assessment and Plan for all problems:: We will set the patient up for a MRI. She has no diagnostic imaging at this time. I will see her after her MRI reassess her at that time to move forward with the care plan. She has been instructed to call the office if she has any issues prior to her next appointment. Dr. Michaud has reviewed this note and agrees with this plan of care. This note was dictated using voice recognition software and may contain errors or omissions HPI - Data of Consult Consult date: 10/18/19 Requesting Physician: Brooke Fletcher APRN Primary Care Provider: Davis Dhillon MD - Consult Narrative Reason for consult: Back pain, leg pain History of present illness: Ms. Orourke is a 58 year old female who presents today for consultation in regards to her low back and leg pain. Patient states she has had pain for several years. She rates her pain at a 5 out of 10. Patient states any kind of increased activity increases her pain well a heating pad decreases her pain. She has numbness and tingling in her bilateral legs and feet. She is tried multiple medications including gabapentin, anti-inflammatories and amitriptyline's. CC: Brooke Fletcher APRN [facility] History I have reviewed the patient's past medical history: Yes Medical History: Reports:: Depression, Hypertension *Have you ever received a pneumonia vaccine?: Yes *Have you received a flu vaccine this season?: Yes Other Surgeries: Yes: Hysterectomy-Total, Other (gallstone sx) - *Social History Smoking Status: Never smoker Alcohol Intake: never Alcohol Intake Frequency:: holidays/special occasions only *Occupational Status:: other Housing: other Household Members: other *Travel in the last 8 weeks: None - Psychiatric History Pschychiatric History:: Reports:: Depression Family Hx:: Non-contributory Review of Systems - Review of Systems ROS General: no recent weight change, no fever, no sleep disturbances Respiratory: no cough, no shortness of air, no recurring pulmonary infections Cardiovascular/Peripheral Vascular: No chest pain, No palpitations, no edema, no shortness of breath. Gastrointestinal: no new onset incontinence, normal bowel movements reported Genitourinary: no new onset incontinence Musculoskeletal: Back pain, leg pain Psychiatric: normal mood/ affect Neurological: [denies new onset weakness in extremities], [denies new onset balance issues] Meds Home Medications Medication Instructions Recorded Confirmed Type Duloxetine HCl 60 mg PO DAILY 10/21/17 10/21/17 History Omeprazole [Omeprazole 40mg 40 mg PO DAILY 10/21/17 10/21/17 History Capsule] hydrOXYzine HCL [Hydroxyzine HCl] 25 mg PO TID 10/22/17 10/22/17 History Amitriptyline HCl [Elavil 25mg 25 mg PO DAILY 10/18/19 10/18/19 History tablet] Famotidine [Pepcid 20mg Tablet] 20 mg PO DAILY 10/18/19 10/18/19 History Allergies Allergy/AdvReac Type Severity Reaction Status Date / Time Penicillins [PENICILLINS] Allergy Unknown I-HIVES Verified 10/21/17 11:37 Objective Vital signs: Pulse Resp BP Pulse Ox 98 H 18 124/82 99 10/18/19 09:36 10/18/19 09:36 10/18/19 09:36 10/18/19 09:36 Narrative: Physical Exam General: Alert and oriented x3, no acute distress, pleasant and cooperative, [on room air] Lungs: Resps E/U, Symmetrical chest expansion, Eyes: PERRL Musculoskeletal: Flexion and extension of lumbar spine somewhat guarded secondary to pain, deep tendon reflexes normal, strength in upper and lower extremities [5/5], [abnormal gait noted] Neurological: speech clear, postpartum nurse equal, no gross sensory deficits Opioid Ris
== END ==
PROVIDERS: PCP Internal Medicine Adolescent Medicine; Visit Provider Clinical Nurse Specialist Family Health
DX: M54.9 Dorsalgia, unspecified (principal); M79.606 Pain in leg, unspecified; Z79.899 Other long term (current) drug therapy; Z88.0 Allergy status to penicillin
CPT/HCPCS: 99202

== ENCOUNTER → 2019-10-21 15:40 | Outpatient (CLI) | payer OTHER, SELFPAY ==
--- NOTE | 2019-10-21 15:42 | MR_ITS ---
PROCEDURE: MR LUMBAR SPINE WO CON CLINICAL INDICATION: LUMBAGO WITH SCIATICA Low back pain radiating into upper back and legs with bilateral leg numbness tingling pain COMPARISON: XR LUMBAR SPINE MIN 4V from 10/12/2019 TECHNIQUE: Standard multiplanar multiecho sequences are performed without contrast. 3-D MIP and myelographic images are also rendered and reviewed FINDINGS: There is normal alignment. Spinal cord ends at the L1-L2 level. L2-L3, L3-L4, and L4-5 have an unremarkable appearance. L5-S1: There is degenerative disc disease at L5-S1 with minimal bulging disc with mild facet and ligamentum hypertrophy and mild bilateral foraminal narrowing. No extruded herniated disc evident. No canal stenosis. Incidental note made right renal cysts IMPRESSION: 1. There is degenerative disc disease at L5-S1 with minimal bulging disc with mild facet and ligamentum hypertrophy and mild bilateral foraminal narrowing. 2. No extruded herniated disc evident. No canal stenosis Dictated by: Anupam Rose MD 10/22/2019 09:45 Electronically signed by Anupam Rose MD in [place] 10/22/2019 09:45
== END ==
PROVIDERS: PCP Internal Medicine Adolescent Medicine; Visit Provider Nurse Practitioner Family
DX: M54.42 Lumbago with sciatica, left side (principal); M54.41 Lumbago with sciatica, right side
CPT/HCPCS: 72148; 76376

== ENCOUNTER → 2020-06-09 11:18 | Outpatient (CLI) | payer OTHER, SELFPAY ==
[2020-06-09 14:58] LABS: Chloride 105 mmol/L (98-107); Potassium 4.2 mmoL/L (3.5-5.1); Sodium 138 mmol/L (136-145)
[2020-06-09 15:00] LABS: Alanine Aminotransferase 23 U/L (12-78); Aspartate Amino Transferase 28 U/L (14-36); Blood Urea Nitrogen 13 mg/dl (7-17); Estimated Glomerular Filt Rate 73 ml/min (>60); GFR (African American) 89 ML/MIN (>60)
[2020-06-09 15:01] LABS: Albumin Level 3.8 g/dl (3.5-5.0); Albumin/Globulin Ratio 1.3 (1.1-1.8); Alkaline Phosphatase 98 U/L (38-126); Anion Gap 9.2 mEq/L (5-15); Bilirubin,Total 0.7 mg/dl (0.2-1.3); Calcium 9.2 mg/dl (8.4-10.2); Carbon Dioxide 28 mmol/L (22.0-30.0); Chol/HDL Ratio 2.7 (1-3.5); Cholesterol 150 mg/dl (140-200); Globulin 2.9 g/dL (1.3-3.2); Glucose 95 mg/dl (74-100); HDL Cholesterol 56 mg/dl (40-60); Total Protein,Serum 6.7 g/dl (6.3-8.2); Triglycerides 194 mg/dl (30-150); VLDL Cholesterol 39 mg/dL (0-40)
[2020-06-09 15:12] LABS: Direct LDL Cholesterol 70.93 mg/dL (100-129)
== END ==
PROVIDERS: PCP Internal Medicine Adolescent Medicine; Visit Provider Nurse Practitioner Family
DX: I10 Essential (primary) hypertension (principal); Z00.00 Encounter for general adult medical examination without abnormal findings
CPT/HCPCS: 36415; 80053; 80061

== ENCOUNTER → 2020-06-14 12:52 | Outpatient (CLI) | payer OTHER, SELFPAY ==
--- NOTE | 2020-06-14 12:54 | MM_ITS ---
PROCEDURE: MM DIG SCREENING MAMM BI W/CAD Digital Breast Tomosynthesis Included CLINICAL INDICATION: SCREENING There is no personal or family history of breast cancer. COMPARISON: MG DIGMAMMS MAMMOGRAM SCREEN-LEAD SOFTWARE ENGINEER N/C from 10/23/2005 MG DIGMAMMDX MAMMOGRAM DX-LEAD SOFTWARE ENGINEER N/C from 04/24/2006 MG DMSB DIG MAMM-SCREEN BIGG from 05/29/2016 TECHNIQUE: Standard CC and MLO images and 3D Tomosynthesis was obtained. R2 CAD reviewed. FINDINGS: Mild scattered fibroglandular densities are seen in the central portions of both breasts on a background of primarily fatty breast parenchyma. There is no suspicious lesion in either breast and no suspicious microcalcifications. IMPRESSION: Fibrofatty parenchyma with no suspicious lesions BI-RAD Category: 1 Negative FOLLOW-UP: 1YR 1 Year Follow-up (A letter has been sent to the patient regarding results of the study.) Dictated by: Dr. Gino Lane MD 06/19/2020 15:[address] MD in [place] 06/19/2020 15:52
== END ==
PROVIDERS: PCP Internal Medicine Adolescent Medicine; Visit Provider Nurse Practitioner Family
DX: Z12.31 Encounter for screening mammogram for malignant neoplasm of breast (principal)
CPT/HCPCS: 77063; 77067

== ENCOUNTER 2020-11-10 22:44 | Emergency (ER) | payer OTHER, SELFPAY ==
--- NOTE | 2020-11-10 22:47 | ECG_ITS ---
APPROVED REPORT Exam: Resting ECG HR:89 bpm ECG Measurements Heart Rate 89 AXES QRSd 76 QRS 38 QT 374 T 81 QTc 455 Conclusion Accelerated Junctional rhythm Abnormal ECG Electronically signed by : Davis Dhillon, 11/11/2020 07:12:32
[2020-11-10 22:49] VITALS: BP 161/91; PULSE 87; RESP 18; TEMP 36.5; O2SAT 99; BMI 34.5
--- NOTE | 2020-11-10 22:56 | XR_ITS ---
PROCEDURE: XR CHEST 2V CLINICAL HISTORY: chest pain COMPARISON: CR CXR2V XR chest 2V from 10/21/2017 CR CXR2V XR chest 2V from 10/23/2017 DX CXR2V XR chest 2V from 04/13/2018 FINDINGS: The cardiomediastinal silhouette and pulmonary vascularity are within normal limits. The lungs are clear without infiltrates, suspicious nodules, or pleural effusions. No acute bony abnormalities. IMPRESSION: No acute findings. Dictated by: Anupam Rose MD 11/11/2020 08:10 Anupam Rose MD in [place] 11/11/2020 08:10
--- NOTE | 2020-11-10 22:56 | HMH.EDCP ---
ED Disposition Clinical Impression: Atypical chest pain Left shoulder pain Qualifiers: Chronicity: acute Qualified Code(s): M25.512 - Pain in left shoulder Disposition: Home, Self-Care Condition on Discharge: Good Instructions: DI for Atypical Chest Pain, Shoulder Tendinopathy, DI for Rotator Cuff Injury Additional Instructions: Recommend adding Tylenol to your daily regimen along with ibuprofen for the pain. Use the sling for comfort and rest the arm with additional ice as needed for pain. Follow-up with sports medicine for evaluation of the shoulder pain. Referrals: Kenisha Mejia APRN [Primary Care Provider] - [facility] [Provider Group] Time of Disposition: 23:38 - Critical Care Critical Care Time: No Attestation: On 11/10/20, the high probability of a clinically significant, sudden or life threatening deterioration of the following system(s) required my full and direct attention, intervention and personal management. The time I documented below is in addition to time spent performing reported procedures but includes the following listed in this critical care notation. Medical Decision Making - Medical Records Medical records reviewed: Yes: I reviewed the patient's medical records. - Pk Inquiry Pt receiving controlled substance: No Vital Signs: 11/10/20 22:49 Temperature 97.7 F Temperature Source Oral Pulse Rate [Right Brachial] 87 Respiratory Rate 18 Blood Pressure [Right Arm] 161/91 H Blood Pressure Mean [Right Arm] 114 Blood Pressure Source [Right Arm] Automatic Cuff Blood Pressure Position [Right Arm] Sitting 02 Sat by Pulse Oximetry 99 Oxygen Delivery Method Room Air - Lab Data Lab Results 11/10/20 23:05: WBC 11.1 H, RBC 4.23, Hgb 11.6 L, Hct 36.7 L, MCV 86.8, MCH 27.5, MCHC 31.6 L, RDW 14.2, Plt Count 383, MPV 8.3, Neut % (Auto) 53.9, Lymph % (Auto) 33.5, [place] % (Auto) 6.9, Eos % (Auto) 5.2, Baso % (Auto) 0.5, Neut # (Auto) 6.0, Lymph # (Auto) 3.7, [place] # (Auto) 0.8, Eos # (Auto) 0.6 H, Baso # (Auto) 0.1 11/10/20 23:05: Sodium 141, Potassium 4.1, Chloride 107, Carbon Dioxide 25, Anion Gap 13.1, BUN 17, Creatinine 1.10 H, Estimated Creat Clear 74, Estimated GFR 51 L, Est GFR ( Amer) 61, Glucose 99, Calcium 9.7, Troponin I < 0.01 Result diagrams: 11/10/20 23:05 11/10/20 23:05 Orders (Tests/Meds): ED MEDICATIONS Discontinued Medications Generic Name Dose Route Start Last Admin Trade Name Freq PRN Reason Stop Dose Admin Aspirin 324 mg 11/10/20 22:56 Aspirin 81mg Chewable Tablet PO 11/10/20 22:57 ONCE ONE ORDERS Category Date Time Status Shoulder XR left minimum 2 views [XR shoulder LT min 2V Exams 11/10/20 22:57 Taken ] Stat XR chest 2V Stat Exams 11/10/20 22:56 Taken Troponin I Q3H Lab 11/11/20 02:00 Ordered Troponin I Q3H Lab 11/11/20 05:00 Ordered - Radiology Data #1 Image(s): Chest Image Reviewed: Yes I reviewed the patient's radiology image Preliminary Findings: Normal/NAD #2 Image(s): Shoulder Image Reviewed: Yes I reviewed the patient's radiology image Preliminary Findings: Abnormal (Patient has arthritis of the left shoulder but the humeral head is well-seated with no acute dislocation or acute fracture.) - ECG Data Tracing #1 I reviewed this ECG and interpreted as documented below: Normal sinus rhythm with a rate of 89, normal axis, slightly prolonged QT, no acute ST segment elevation or acute T wave changes. Interpreted by me ECG initial impression date: 11/10/20 ECG initial impression time: 22:50 Normal Sinus Rhythm: Yes Medical Decision Narrative: 60-year-old female with a history of hypertension, hyperlipidemia, and anxiety who presents with 3 weeks of left shoulder arm and chest pain that she states started when she tried to lift her 2-year-old grandson. Patient is overall well-appearing nontoxic on initial examination. Hemodynamically stable vital signs. Based on the timeframe and the
--- NOTE | 2020-11-10 22:57 | XR_ITS ---
PROCEDURE: XR SHOULDER LT MIN 2V CLINICAL INDICATION: shoulder pain COMPARISON: No exams were available for comparison FINDINGS: No fracture or dislocation. No lytic or blastic change. There is normal mineralization. The joint spaces are well-preserved. No significant degenerative/arthritic changes. No erosive changes evident. Other findings:None. IMPRESSION: No acute findings. Dictated by: Anupam Rose MD 11/11/2020 08:09 Anupam Rose MD in [place] 11/11/2020 08:09
[2020-11-10 23:14] LABS: Basophils # 0.1 K/mm3 (0-0.2); Basophils % 0.5 % (0.1-2.0); Eosinophils # 0.6 K/mm3 (0.0-0.4); Eosinophils % 5.2 % (0.1-12.0); Hematocrit 36.7 % (37.0-47.0); Hemoglobin 11.6 g/dL (12.2-16.2); Lymphocytes # 3.7 K/mm3 (0.7-4.5); Lymphocytes % 33.5 % (10-50); Mean Corpuscular HGB Conc 31.6 g/dL (31.8-35.4); Mean Corpuscular Hemoglobin 27.5 pg (27.0-31.2); Mean Corpuscular Volume 86.8 fl (81-99); Mean Platelet Volume 8.3 fl (7.4-10.4); Monocytes # 0.8 K/mm3 (0.1-1.0); Monocytes % 6.9 % (1.7-9.3); Neutrophils % 53.9 % (37.0-80.0); Platelet Count 383 K/mm3 (142-424); Red Blood Count 4.23 M/mm3 (4.20-5.40); Red Cell Distribution Width 14.2 % (11.5-17.5); White Blood Count 11.1 K/mm3 (4.8-10.8)
[2020-11-10 23:19] LABS: Anion Gap 13.1 mEq/L (5-15); Blood Urea Nitrogen 17 mg/dl (7-17); Calcium 9.7 mg/dl (8.4-10.2); Carbon Dioxide 25 mmol/L (22.0-30.0); Chloride 107 mmol/L (98-107); Creatinine Clearance Estimated 74 mL/min (50-200); Estimated Glomerular Filt Rate 51 ml/min (>60); GFR (African American) 61 ML/MIN (>60); Glucose 99 mg/dl (74-100); Potassium 4.1 mmoL/L (3.5-5.1); Sodium 141 mmol/L (136-145)
[2020-11-10 23:32] LABS: Troponin I < 0.01 ng/ml (0.00-0.034)
[2020-11-10 23:45] VITALS: BP 120/64; PULSE 75; RESP 16; TEMP 36.6; O2SAT 97
== END 2020-11-10 23:51 | disposition home or self-care (01) ==
PROVIDERS: Emergency Provider Student in an Organized Health Care Education/Training Program; PCP Nurse Practitioner Family
DX: R07.89 Other chest pain (principal); M25.512 Pain in left shoulder; I10 Essential (primary) hypertension; E78.5 Hyperlipidemia, unspecified; F17.210 Nicotine dependence, cigarettes, uncomplicated; Z88.0 Allergy status to penicillin; Z79.899 Other long term (current) drug therapy
CPT/HCPCS: 71046; 73030; 80048; 84484; 85025; 93005; 99282

== ENCOUNTER 2020-12-03 00:54 | Emergency (ER) | payer OTHER, SELFPAY ==
[2020-12-03 00:57] VITALS: BP 143/92; PULSE 78; RESP 16; TEMP 37.1; O2SAT 100; BMI 34.7
--- NOTE | 2020-12-03 01:12 | PC.NURSE ---
Pt is refusing care and wants to leave, Pt's daughter at bedside and agrees with taking her home. Daughter signed AMA papers and danger of leaving was explained to pt and daughter. Pt left with daughter.
[2020-12-03 01:13] VITALS: BP 000/00; PULSE 0; RESP 0; TEMP -17.7; TEMP 0; O2SAT 0
== END 2020-12-03 01:16 | disposition left against medical advice (07) ==
PROVIDERS: Emergency Provider Emergency Medicine; PCP Internal Medicine Adolescent Medicine
DX: Z53.21 Procedure and treatment not carried out due to patient leaving prior to being seen by health care provider (principal); W19.XXXA Unspecified fall, initial encounter; R03.0 Elevated blood-pressure reading, without diagnosis of hypertension
CPT/HCPCS: 99211

== ENCOUNTER → 2020-12-05 11:32 | Outpatient (CLI) | payer OTHER, SELFPAY ==
[2020-12-05 11:50] LABS: Basophils % 0.5 % (0.1-2.0); Eosinophils # 0.4 K/mm3 (0.0-0.4); Eosinophils % 6.5 % (0.1-12.0); Hematocrit 33.2 % (37.0-47.0); Hemoglobin 10.9 g/dL (12.2-16.2); Lymphocytes # 1.5 K/mm3 (0.7-4.5); Lymphocytes % 23.1 % (10-50); Mean Corpuscular HGB Conc 32.8 g/dL (31.8-35.4); Mean Corpuscular Volume 85.4 fl (81-99); Mean Platelet Volume 7.8 fl (7.4-10.4); Monocytes # 0.4 K/mm3 (0.1-1.0); Monocytes % 6.1 % (1.7-9.3); Neutrophils # 4.2 K/mm3 (1.8-7.8); Neutrophils % 63.9 % (37.0-80.0); Platelet Count 314 K/mm3 (142-424); Red Blood Count 3.89 M/mm3 (4.20-5.40); Red Cell Distribution Width 14.4 % (11.5-17.5); White Blood Count 6.6 K/mm3 (4.8-10.8)
[2020-12-05 12:15] LABS: Alanine Aminotransferase 21 U/L (12-78); Albumin Level 3.9 g/dl (3.5-5.0); Albumin/Globulin Ratio 1.4 (1.1-1.8); Alkaline Phosphatase 95 U/L (38-126); Anion Gap 10.7 mEq/L (5-15); Aspartate Amino Transferase 26 U/L (14-36); Bilirubin,Total 0.4 mg/dl (0.2-1.3); Blood Urea Nitrogen 16 mg/dl (7-17); Calcium 8.6 mg/dl (8.4-10.2); Carbon Dioxide 23 mmol/L (22.0-30.0); Chloride 110 mmol/L (98-107); Estimated Glomerular Filt Rate 85 ml/min (>60); GFR (African American) 103 ML/MIN (>60); Globulin 2.8 g/dL (1.3-3.2); Glucose 123 mg/dl (74-100); Potassium 3.7 mmoL/L (3.5-5.1); Sodium 140 mmol/L (136-145); Total Protein,Serum 6.7 g/dl (6.3-8.2)
[2020-12-05 12:38] LABS: 25-OH Vitamin D, Total < 12.8 ng/mL (30-100)
[2020-12-05 12:46] LABS: Thyroid Stimulating Hormone 1.53 uIU/mL (0.465-4.68)
[2020-12-05 13:04] LABS: Vitamin B12 208 pg/mL (239-931)
== END ==
PROVIDERS: Visit Provider Nurse Practitioner Family
DX: R20.2 Paresthesia of skin (principal); M79.602 Pain in left arm; M79.601 Pain in right arm; E55.9 Vitamin D deficiency, unspecified
CPT/HCPCS: 36415; 80053; 82306; 82607; 84443; 85025

== ENCOUNTER 2021-04-14 00:28 | Emergency (ER) | payer OTHER, SELFPAY ==
[2021-04-14 00:28] VITALS: BP 137/88; PULSE 91; RESP 17; TEMP 36.8; O2SAT 97; BMI 33.9
--- NOTE | 2021-04-14 00:35 | XR_ITS ---
PROCEDURE INFORMATION: Exam: XR Chest Exam date and time: 04/14/2021 12:35 AM Age: 60 years old Clinical indication: Other: Syncope; Additional info: Syncope secondary to ETOH intoxication TECHNIQUE: Imaging protocol: XR of the chest. Views: 1 view. COMPARISON: CR XR CHEST 2V 10/11/2020 22:59 FINDINGS: Lungs: Unremarkable. No consolidation. Pleural spaces: Unremarkable. No pleural effusion. No pneumothorax. Heart/Mediastinum: Unremarkable. No cardiomegaly. Bones/joints: Unremarkable. IMPRESSION: No acute findings.
[2021-04-14 00:38] LABS: Microscopic, Urine URINE MICROSCOPIC (MICROSCOPIC)
[2021-04-14 00:41] LABS: Basophils # 0.1 K/mm3 (0-0.2); Basophils % 0.7 % (0.1-2.0); Eosinophils # 0.6 K/mm3 (0.0-0.4); Eosinophils % 5.7 % (0.1-12.0); Hematocrit 37.1 % (37.0-47.0); Hemoglobin 12.3 g/dL (12.2-16.2); Lymphocytes % 41.4 % (10-50); Mean Corpuscular HGB Conc 33.1 g/dL (31.8-35.4); Mean Corpuscular Hemoglobin 28.4 pg (27.0-31.2); Monocytes # 0.6 K/mm3 (0.1-1.0); Monocytes % 6.6 % (1.7-9.3); Neutrophils # 4.4 K/mm3 (1.8-7.8); Neutrophils % 45.6 % (37.0-80.0); Platelet Count 344 K/mm3 (142-424); Red Blood Count 4.32 M/mm3 (4.20-5.40); Red Cell Distribution Width 14.7 % (11.5-17.5); White Blood Count 9.7 K/mm3 (4.8-10.8)
[2021-04-14 00:45] LABS: Appearance,Urine CLEAR (Clear); Bilirubin,Urine Negative (Negative); Blood, Urine 2+ (Negative); Color,Urine YELLOW (Yellow); Glucose,Urine (UA) Negative (Negative); Ketones,Urine Negative (Negative); Leukocyte Esterase,Urine Negative (Negative); Nitrate,Urine Negative (Negative); PH,Urine 5.5 (5.0-8.5); Protein,Urine Negative (Negative); Specific Gravity, Urine <= 1.005 (1.005-1.030); Urobilinogen,Urine 0.2 EU/dl (0.2)
[2021-04-14 00:46] LABS: Amorphous Sediment,Urine Trace /lpf
[2021-04-14 00:48] LABS: Chloride 103 mmol/L (98-107); Potassium 3.4 mmoL/L (3.5-5.1); Sodium 137 mmol/L (136-145)
[2021-04-14 00:50] LABS: Alanine Aminotransferase 25 U/L (12-78); Alkaline Phosphatase 102 U/L (38-126); Aspartate Amino Transferase 34 U/L (14-36); Bilirubin,Total 0.3 mg/dl (0.2-1.3); Blood Urea Nitrogen 17 mg/dl (7-17); Creatinine Clearance Estimated 82 mL/min (50-200); Estimated Glomerular Filt Rate 51 ml/min (>60); GFR (African American) 61 ML/MIN (>60)
[2021-04-14 00:51] LABS: Albumin Level 4.5 g/dl (3.5-5.0); Albumin/Globulin Ratio 1.4 (1.1-1.8); Anion Gap 14.4 mEq/L (5-15); Calcium 9.4 mg/dl (8.4-10.2); Carbon Dioxide 23 mmol/L (22.0-30.0); Ethyl Alcohol 231 mg/dl (0-10); Globulin 3.3 g/dL (1.3-3.2); Glucose 104 mg/dl (74-100); Total Protein,Serum 7.8 g/dl (6.3-8.2)
[2021-04-14 00:55] LABS: Acetaminophen < 10 ug/ml (10-30); Salicylate < 1.0 mg/dL (2.0-20.0)
[2021-04-14 00:56] LABS: Barbiturates Screen,Urine Negative ng/ml (<200); Benzodiazepines Screen,Urine Negative ng/ml (<200)
[2021-04-14 00:57] LABS: Amphetamine/Metha Screen,Urine Negative ng/ml (<1000)
[2021-04-14 00:58] LABS: Cannabinoid Screen,Urine Negative ng/ml (<50); Cocaine Screen,Urine Negative ng/ml (<300)
[2021-04-14 00:59] LABS: Methadone Screen,Urine Negative ng/ml (<300)
[2021-04-14 01:00] LABS: Opiate Screen,Urine Negative ng/ml (<300); Phencyclidine Screen,Urine Negative ng/ml (<25)
[2021-04-14 01:09] VITALS: BP 114/58; PULSE 82; O2SAT 94
--- NOTE | 2021-04-14 01:14 | HMH.EDGENADL ---
ED Disposition Clinical Impression: Alcohol intoxication Qualifiers: Complication of substance-induced condition: uncomplicated Qualified Code(s): F10.920 - Alcohol use, unspecified with intoxication, uncomplicated Disposition: Home, Self-Care Condition on Discharge: Fair Instructions: DI for Altered Mental Status, DI for Alcohol Use Disorder Additional Instructions: You have been evaluated for altered mental status, likely due to alcohol intoxication. Please avoid drugs and alcohol. Follow-up with your primary care doctor. Return to the emergency department for any new or worsening symptoms. Referrals: Kenisha Mejia APRN [Primary Care Provider] - Time of Disposition: 02:59 - Critical Care Critical Care Time: No Attestation: On 04/14/21, the high probability of a clinically significant, sudden or life threatening deterioration of the following system(s) required my full and direct attention, intervention and personal management. The time I documented below is in addition to time spent performing reported procedures but includes the following listed in this critical care notation. Medical Decision Making - Medical Records Medical records reviewed: Yes: I reviewed the patient's medical records. - Pk Inquiry Pt receiving controlled substance: No Vital Signs: 04/14/21 00:28 04/14/21 01:09 04/14/21 02:28 Temperature 98.2 F Temperature Source Oral Pulse Rate 82 81 Pulse Rate [Right Brachial] 91 H Respiratory Rate 17 Blood Pressure 114/58 L 89/73 L Blood Pressure [Right Arm] 137/88 Blood Pressure Mean 68 74 Blood Pressure Mean [Right Arm] 104 Blood Pressure Source [Right Arm] Automatic Cuff Blood Pressure Position [Right Arm] Sitting 02 Sat by Pulse Oximetry 97 94 L 96 Oxygen Delivery Method Room Air - Lab Data Lab Results 04/14/21 00:30: Urine Color Yellow, Urine Appearance Clear, Urine pH 5.5, Ur Specific [place] <= 1.005, Urine Protein Negative, Urine Glucose (UA) Negative, Urine Ketones Negative, Urine Blood 2+, Urine Nitrate Negative, Urine Bilirubin Negative, Urine Urobilinogen 0.2, Ur Leukocyte Esterase Negative, Urine RBC 3-5, Amorphous Sediment Trace 04/14/21 00:30: WBC 9.7, RBC 4.32, Hgb 12.3, Hct 37.1, MCV 86.0, MCH 28.4, MCHC 33.1, RDW 14.7, Plt Count 344, MPV 8.0, Neut % (Auto) 45.6, Lymph % (Auto) 41.4, [place] % (Auto) 6.6, Eos % (Auto) 5.7, Baso % (Auto) 0.7, Neut # (Auto) 4.4, Lymph # (Auto) 4.0, [place] # (Auto) 0.6, Eos # (Auto) 0.6 H, Baso # (Auto) 0.1 04/14/21 00:30: Sodium 137, Potassium 3.4 L, Chloride 103, Carbon Dioxide 23, Anion Gap 14.4, BUN 17, Creatinine 1.10 H, Estimated Creat Clear 82, Estimated GFR 51 L, Est GFR ( Amer) 61, Glucose 104 H, Calcium 9.4, Total Bilirubin 0.3, AST 34, ALT 25, Alkaline Phosphatase 102, Total Protein 7.8, Albumin 4.5, Globulin 3.3 H, Albumin/Globulin Ratio 1.4, Salicylates < 1.0 L, Acetaminophen < 10 L 04/14/21 00:30: Urine Opiates Screen Negative, Urine Methadone Screen Negative, Ur Barbituates Screen Negative, Ur Phencyclidine Scrn Negative, Ur Amphetamines Screen Negative, U Benzodiazepines Scrn Negative, Urine Cocaine Screen Negative, U Marijuana (THC) Screen Negative 04/14/21 00:30: Plasma/Serum Alcohol 231 H Result diagrams: 04/14/21 00:30 04/14/21 00:30 Orders (Tests/Meds): ED MEDICATIONS Generic Name Dose Route Start Last Admin Trade Name Freq PRN Reason Stop Dose Admin Sodium Chloride 1,000 mls @ 999 mls/hr 04/14/21 00:45 04/14/21 00:41 Sod Chlor 0.9% 1000ml Bag IV 04/14/21 01:45 999 mls/hr .Q1H1M DAVID Administration Discontinued Medications Generic Name Dose Route Start Last Admin Trade Name Freq PRN Reason Stop Dose Admin Ondansetron HCl 4 mg 04/14/21 00:36 04/14/21 00:41 Ondansetron 4mg/2ml Vial IV 04/14/21 00:37 4 mg ONCE ONE Administration - CT Data CT Scan: Head Time Received: 02:[address] Reviewed: Yes: I have reviewed the patient's CT results, I have viewed the radiolo
--- NOTE | 2021-04-14 01:15 | CT_ITS ---
PROCEDURE INFORMATION: Exam: CT Head Without Contrast Exam date and time: 04/14/2021 1:15 AM Age: 60 years old Clinical indication: Altered mental status/memory loss; Patient HX: ETOH; Additional info: AMS TECHNIQUE: Imaging protocol: Computed tomography of the head without contrast. Radiation optimization: All CT scans at this facility use at least one of these dose optimization techniques: automated exposure control; mA and/or kV adjustment per patient size (includes targeted exams where dose is matched to clinical indication); or iterative reconstruction. COMPARISON: No relevant prior studies available. FINDINGS: Brain: Cerebral volume is lower limits of normal for age. No focal mass effect or intracranial hemorrhage noted. Mild periventricular and subcortical lucencies are present which may represent chronic small vessel ischemic change. No evidence of hydrocephalus or abnormal extra-axial fluid collection. Cerebral ventricles: No ventriculomegaly. Paranasal sinuses: Visualized sinuses are unremarkable. No fluid levels. Mastoid air cells: Visualized mastoid air cells are well aerated. Bones/joints: Unremarkable. No acute fracture. Soft tissues: Unremarkable. IMPRESSION: No acute intracranial process.
[2021-04-14 02:28] VITALS: BP 89/73; PULSE 81; O2SAT 96
[2021-04-14 03:21] VITALS: BP 110/75; PULSE 86; RESP 18; TEMP 36.7; O2SAT 96
== END 2021-04-14 03:22 | disposition home or self-care (01) ==
PROVIDERS: Emergency Provider Emergency Medicine; PCP Nurse Practitioner Family
DX: F10.929 Alcohol use, unspecified with intoxication, unspecified (principal); I10 Essential (primary) hypertension; F33.1 Major depressive disorder, recurrent, moderate; F17.210 Nicotine dependence, cigarettes, uncomplicated; Z88.0 Allergy status to penicillin
CPT/HCPCS: 70450; 71045; 80053; 80305; 80329; 81001; 85025; 96365; 96375; 99283; J2405

== ENCOUNTER → 2021-07-14 10:35 | Outpatient (CLI) | payer OTHER, SELFPAY ==
[2021-07-14 10:56] LABS: Basophils % 0.5 % (0.1-2.0); Eosinophils # 0.3 K/mm3 (0.0-0.4); Eosinophils % 4.7 % (0.1-12.0); Hemoglobin 12.4 g/dL (12.2-16.2); Lymphocytes # 1.6 K/mm3 (0.7-4.5); Lymphocytes % 21.5 % (10-50); Mean Corpuscular HGB Conc 31.8 g/dL (31.8-35.4); Mean Corpuscular Hemoglobin 29.8 pg (27.0-31.2); Mean Corpuscular Volume 93.9 fl (81-99); Mean Platelet Volume 8.6 fl (7.4-10.4); Monocytes # 0.5 K/mm3 (0.1-1.0); Monocytes % 7.3 % (1.7-9.3); Neutrophils # 4.8 K/mm3 (1.8-7.8); Neutrophils % 65.9 % (37.0-80.0); Platelet Count 366 K/mm3 (142-424); Red Blood Count 4.16 M/mm3 (4.20-5.40); Red Cell Distribution Width 14.6 % (11.5-17.5); White Blood Count 7.2 K/mm3 (4.8-10.8)
[2021-07-14 11:06] LABS: Hemoglobin A1C 5.5 % (4.0-6.0)
[2021-07-14 11:32] LABS: Chloride 111 mmol/L (98-107); Sodium 143 mmol/L (136-145)
[2021-07-14 11:33] LABS: Potassium 4.2 mmoL/L (3.5-5.1)
[2021-07-14 11:35] LABS: Alanine Aminotransferase 26 U/L (12-78); Alkaline Phosphatase 95 U/L (38-126); Anion Gap 12.2 mEq/L (5-15); Aspartate Amino Transferase 29 U/L (14-36); Bilirubin,Total 0.2 mg/dl (0.2-1.3); Blood Urea Nitrogen 10 mg/dl (7-17); Carbon Dioxide 24 mmol/L (22.0-30.0); Cholesterol 174 mg/dl (140-200); Estimated Glomerular Filt Rate 102 ml/min (>60); GFR (African American) 123 ML/MIN (>60); Triglycerides 171 mg/dl (30-150); VLDL Cholesterol 34 mg/dL (0-40)
[2021-07-14 11:36] LABS: Albumin Level 3.9 g/dl (3.5-5.0); Albumin/Globulin Ratio 1.4 (1.1-1.8); Calcium 8.8 mg/dl (8.4-10.2); Chol/HDL Ratio 2.9 (1-3.5); Globulin 2.7 g/dL (1.3-3.2); Glucose 108 mg/dl (74-100); HDL Cholesterol 60 mg/dl (40-60); Total Protein,Serum 6.6 g/dl (6.3-8.2)
[2021-07-14 11:47] LABS: Direct LDL Cholesterol 85.21 mg/dL (100-129)
== END ==
PROVIDERS: Visit Provider Internal Medicine Adolescent Medicine
DX: Z00.00 Encounter for general adult medical examination without abnormal findings (principal); I10 Essential (primary) hypertension
CPT/HCPCS: 36415; 80053; 80061; 83036; 85025

== ENCOUNTER → 2022-03-02 09:48 | Outpatient (CLI) | payer OTHER, SELFPAY ==
[2022-03-02 10:21] LABS: Basophils # 0.1 K/mm3 (0-0.2); Basophils % 0.6 % (0.1-2.0); Eosinophils # 0.5 K/mm3 (0.0-0.4); Eosinophils % 3.4 % (0.1-12.0); Hematocrit 39.2 % (37.0-47.0); Hemoglobin 12.6 g/dL (12.2-16.2); Lymphocytes # 1.4 K/mm3 (0.7-4.5); Lymphocytes % 10.2 % (10-50); Mean Corpuscular HGB Conc 32.2 g/dL (31.8-35.4); Mean Corpuscular Hemoglobin 30.8 pg (27.0-31.2); Mean Corpuscular Volume 95.8 fl (81-99); Mean Platelet Volume 8.7 fl (7.4-10.4); Monocytes # 0.7 K/mm3 (0.1-1.0); Monocytes % 5.3 % (1.7-9.3); Neutrophils # 10.8 K/mm3 (1.8-7.8); Neutrophils % 80.4 % (37.0-80.0); Platelet Count 322 K/mm3 (142-424); Red Blood Count 4.09 M/mm3 (4.20-5.40); Red Cell Distribution Width 14.5 % (11.5-17.5); White Blood Count 13.5 K/mm3 (4.8-10.8)
[2022-03-02 14:16] LABS: Alanine Aminotransferase 26 U/L (12-78); Albumin Level 3.6 g/dl (3.5-5.0); Albumin/Globulin Ratio 1.3 (1.1-1.8); Alkaline Phosphatase 94 U/L (38-126); Anion Gap 10.2 mEq/L (5-15); Aspartate Amino Transferase 33 U/L (14-36); Bilirubin,Total 0.3 mg/dl (0.2-1.3); Blood Urea Nitrogen 22 mg/dl (7-17); Calcium 8.8 mg/dl (8.4-10.2); Carbon Dioxide 29 mmol/L (22.0-30.0); Chloride 103 mmol/L (98-107); Chol/HDL Ratio 3.8 (1-3.5); Cholesterol 149 mg/dl (140-200); Estimated Glomerular Filt Rate 56 ml/min (>60); GFR (African American) 68 ML/MIN (>60); Globulin 2.7 g/dL (1.3-3.2); Glucose 96 mg/dl (74-100); HDL Cholesterol 39 mg/dl (40-60); Potassium 3.2 mmoL/L (3.5-5.1); Sodium 139 mmol/L (136-145); Total Protein,Serum 6.3 g/dl (6.3-8.2); Triglycerides 146 mg/dl (30-150); VLDL Cholesterol 29 mg/dL (0-40)
[2022-03-02 14:22] LABS: 25-OH Vitamin D, Total 40.3 ng/mL (30-100)
[2022-03-02 15:17] LABS: Vitamin B12 > 1000 pg/mL (239-931)
== END ==
PROVIDERS: PCP Internal Medicine Adolescent Medicine; Visit Provider Internal Medicine Adolescent Medicine
DX: I10 Essential (primary) hypertension (principal); E53.8 Deficiency of other specified B group vitamins; E78.5 Hyperlipidemia, unspecified; E66.9 Obesity, unspecified; Z68.34 Body mass index [BMI] 34.0-34.9, adult
CPT/HCPCS: 36415; 80053; 80061; 82306; 82607; 85025

== ENCOUNTER → 2022-10-22 10:03 | Outpatient (CLI) | payer OTHER, SELFPAY ==
--- NOTE | 2022-10-22 10:06 | MM_ITS ---
PROCEDURE INFORMATION: Exam: MG Bilateral Screening 3D Mammography Exam date and time: 10/22/2022 10:29 AM Age: 61 years old Clinical indication: Screening examination TECHNIQUE: Imaging protocol: Bilateral Screening tomosynthesis and 2D mammography including computer-aided detection (CAD) when performed. COMPARISON: 1. MG MM DIG SCREENING MAMM BI W/CAD 06/14/2020 1:06 PM 2. MG DMSB DIG MAMM-SCREEN BIGG 05/29/2016 9:57 AM FINDINGS: MAMMOGRAPHY: Breast composition: There are scattered areas of fibroglandular density. Mass: None. Architectural distortion: None. Calcifications: No suspicious calcifications. Asymmetric density: None. Skin thickening: None. Axillary adenopathy: None. IMPRESSION: No mammographic evidence of malignancy. Annual screening is recommended unless otherwise clinically indicated. ASSESSMENT: BI-RADS Category 1: Negative
== END ==
PROVIDERS: PCP Internal Medicine Adolescent Medicine; Visit Provider Nurse Practitioner Family
DX: Z12.31 Encounter for screening mammogram for malignant neoplasm of breast (principal)
CPT/HCPCS: 77063; 77067

== ENCOUNTER 2023-08-29 17:15 | Emergency (ER) | payer OTHER, SELFPAY ==
[2023-08-29 17:30] VITALS: BP 139/86; PULSE 76; RESP 18; TEMP 36.7; O2SAT 95; BMI 34.5
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
--- NOTE | 2023-08-29 17:48 | XR_ITS ---
PROCEDURE INFORMATION: Exam: XR Right Humerus Exam date and time: 08/29/2023 5:48 PM Age: 62 years old Clinical indication: Pain; Upper arm; Right; Additional info: Pain for over month after lifting child TECHNIQUE: Imaging protocol: Radiologic exam of the right humerus. Views: 2 or more views. COMPARISON: CR XR CHEST PORTABLE 04/14/2021 12:43 AM FINDINGS: Bones/joints: Normal. Soft tissues: Normal. IMPRESSION: No acute findings.
[2023-08-29 19:00] VITALS: BP 124/86; PULSE 73; RESP 18; TEMP 37; O2SAT 100
== END 2023-08-29 19:00 | disposition home or self-care (01) ==
PROVIDERS: Emergency Provider Nurse Practitioner; PCP Internal Medicine Adolescent Medicine
DX: M79.621 Pain in right upper arm (principal); F17.210 Nicotine dependence, cigarettes, uncomplicated
CPT/HCPCS: 73060; 99204; 99212; G0463